=== PATIENT | male | born 1985 | race Caucasian/White ===

== ENCOUNTER → 2017-07-28 | Outpatient (CLI) | payer OTHER ==
--- NOTE | 2017-07-28 13:14 | MR ---
EXAMINATION TYPE: MR lumbar spine wo con DATE OF EXAM: 07/28/2017 COMPARISON: NONE HISTORY: Low back pain TECHNIQUE: T1 and T2 axial and sagittal images of the lumbar spine are submitted. FINDINGS: There is no abnormal signal seen within the visualized spinal cord or paraspinal soft tissu es. 3.7 cm simple left renal cyst. At L1-2 there is no evidence of disc herniation, canal stenosis, or foraminal encroachment. No degene rative disc disease. At L2-3 there is evidence of disc herniation, canal stenosis, or foraminal encroachment. No degenerat tao disc disease. At L3-4 there is evidence of disc herniation, canal stenosis, or foraminal encroachment. No degenerat tao disc disease. At L4-5 there is disc desiccation with annular tear tear and small central disc herniation resulting in moderate anterior compression of the thecal sac. Mild hypertrophy of the ligamentum flavum and fac et joints. There is mild bilateral foraminal encroachment. At L5-S1 there is annular tear and central disc bulge. No canal stenosis or foraminal encroachment. IMPRESSION: 1. At L4-5 there is disc desiccation with annular tear tear and small central disc herniation resulti ng in moderate anterior compression of the thecal sac. Mild bilateral foraminal encroachment. 2. Annular tear and central disc bulging L5-S1 with no evidence for foraminal encroachment or canal s tenosis.
== END | disposition home or self-care (01) ==
LOC: RADMRIMAIN 11:26
PROVIDERS: ATTEND Internal Medicine
DX: M51.27 Other intervertebral disc displacement, lumbosacral region (principal); M53.87 Other specified dorsopathies, lumbosacral region
CPT/HCPCS: 72148

== ENCOUNTER 2019-07-05 15:09 | Emergency (ER) | payer OTHER ==
[2019-07-05 15:17] VITALS: TEMP 98.6
[2019-07-05] MEDS ORDERED: DIPH,PERTUS(ACELL)TETVAC-LF 0.5 ML VIAL IM ONE (15:47)
--- NOTE | 2019-07-05 16:12 | XR ---
Right fifth digit HISTORY: Laceration, foreign body 3 views of the fifth digit right foot from the level of the distal metatarsal peripherally No evident fracture or dislocation. Bone mineralization, joint spaces and alignment are maintained. N o radiopaque foreign body. IMPRESSION: No abnormalities evident.
--- NOTE | 2019-07-05 16:57 | ED ---
General Adult HPI - General Chief complaint: Skin/Abscess/Foreign Body Stated complaint: FB in toe Time Seen by Provider: 07/05/19 15:21 Source: patient, RN notes reviewed Mode of arrival: ambulatory Limitations: no limitations - History of Present Illness Initial comments: 34-year-old male presents to the emergency department for a chief of possible gl ass in the right fifth toe. Patient states that yesterday he was cleaning his bathroom when he accidentally tipped over a glass bottle. Patient states he stepped on a small piece of glass. Patient states it has been painful to walk on since that time. States he did try to get the glass out of his Toprol was unsuccessful. He tried to cut open his toe to do this. Patient saw his primary care provider today who prescribed him antibiotics and sent him to the emergency department.Patient has no other complaints at this time including shortness of breath, chest pain, abdominal pain, nausea or vomiting, headache, or visual changes. - Related Data Allergies Allergy/AdvReac Type Severity Reaction Status Date / Time No Known Allergies Allergy Verified 07/05/19 15:17 Review of Systems ROS Statement: Those systems with pertinent positive or pertinent negative responses have been documented in the HPI. ROS Other: All systems not noted in ROS Statement are negative. Past Medical History Past Medical History: No Reported History History of Any Multi-Drug Resistant Organisms: None Reported Past Surgical History: No Surgical Hx Reported Past Psychological History: No Psychological Hx Reported Smoking Status: Current every day smoker Past Alcohol Use History: Occasional Past Drug Use History: Marijuana General Exam Limitations: no limitations General appearance: alert, in no apparent distress Head exam: Present: atraumatic, normocephalic, normal inspection Eye exam: Present: normal appearance, PERRL, EOMI. Absent: scleral icterus, conjunctival injection, periorbital swelling ENT exam: Present: normal exam, mucous membranes moist Neck exam: Present: normal inspection. Absent: tenderness, meningismus, lymphadenopathy Respiratory exam: Present: normal lung sounds bilaterally. Absent: respiratory distress, wheezes, rales, rhonchi, stridor Cardiovascular Exam: Present: regular rate, normal rhythm, normal heart sounds. Absent: systolic murmur, diastolic murmur, rubs, gallop, clicks Extremities exam: Present: normal capillary refill (Capillary refill less than 2 seconds in the right lower extremity.), other (Patient has superficial abrasion where he tried to remove a piece of glass on his own on the plantar aspect of the fifth toe. I do not see any evidence of burn body at this time. Patient does have tenderness over the plantar aspect of the right fifth toe.) Course Vital Signs 07/05/19 15:14 Temperature 98.6 F Pulse Rate 116 H Respiratory 20 Rate Blood Pressure 125/83 O2 Sat by Pulse 97 Oximetry Medical Decision Making - Medical Decision Making Alexander is a 34-year-old male who presents for possible foreign body in the plantar aspect of the right fifth toe. Patient initially tachycardic which is likely secondary to patient's anxiety as he is very anxious about removal of the foreign body. Physical exam does not reveal any obvious evidence of soft tissue foreign body. I used an 18-gauge needle to scrape across his service and I do not feel any pieces of glass. I cannot visualize any glass. X-ray is obtained which showed no abnormalities evident. No radiopaque foreign body. I discussed with patient that at this time as I cannot locate glass in the plantar aspect of the toe he will need to follow up with orthopedics. Patient was already placed on antibiotics by his primary care provider. He will take these. He was updated on tetanus. He will return with any worsening symptoms.I discussed this case with attending Dr. Kirby who agrees with this assessment and treatment plan. Disposition Clinical Impression: Soft tissues foreign body Disposition: HOME SELF-CARE Condition: Good Instructions (If sedation given, give patient instructions): Soft Tissue Foreign Body (ED) Additional Instructions: Please take antibiotic as given to you by your primary care provider. Please follow-up with orthopedics in one to 2 days. Return to the emergency department if you have any worsening symptoms. Is patient prescribed a controlled substance at d/c from ED?: No Referrals: Bee Bryant MD [Primary Care Provider] - 1-2 days Juma Kauffman MD [STAFF PHYSICIAN] - 1-2 days Time of Disposition: 16:56
[2019-07-05] MEDS ORDERED: ACET/COD 300 MG/30 MG STARTER PACK 6 TAB BTL PO STA (17:25)
[2019-07-05 17:31] VITALS: BP 128/91; PULSE 74; RESP 18
== END 2019-07-05 17:30 | disposition home or self-care (01) ==
LOC: EC 15:09
DX: M79.5 Residual foreign body in soft tissue (principal); F41.8 Other specified anxiety disorders; F17.200 Nicotine dependence, unspecified, uncomplicated; Z23 Encounter for immunization; W25.XXXA Contact with sharp glass, initial encounter; Y93.H9 Activity, other involving exterior property and land maintenance, building and construction; Y92.002 Bathroom of unspecified non-institutional (private) residence as the place of occurrence of the external cause
CPT/HCPCS: 90471; 90715; 99283